=== PATIENT | female | born 1950 | race Caucasian/White ===

== ENCOUNTER 2021-02-24 13:11 | Emergency (ER) | payer OTHER ==
[~2021-02-24] VITALS: Ht 152.4 cm; Wt 85.9 kg
[2021-02-24 13:12] VITALS: BP 200/74
[2021-02-24] MEDS ORDERED: cloNIDine HCL 0.1 MG TAB PO ONE (13:30)
[2021-02-24 14:15] LABS: Basophils # (auto) 0 10 ^3/uL (0-0.2); Eosinophils # (auto) 0.1 10 ^3/uL (0-0.8); Lymphocytes # (auto) 0.7 10 ^3/uL (0.4-5.4); Monocytes # (auto) 0.4 10 ^3/uL (0-1.3); White Blood Cell 5.2 10^3/uL (4.4-10.8)
[2021-02-24 14:18] LABS: Basophils % (auto) 0.5 % (0.0-2.0); Eosinophils % (auto) 1.3 % (0.0-7.0); Hematocrit 35.4 % (36.0-46.0); Lymphocytes % (auto) 13.9 % (10.0-50.0); Mean Corpuscular Hemoglobin 33.7 pg (28.0-32.0); Mean Corpuscular Hgb Conc. 33.9 g/dL (32.0-36.0); Mean Corpuscular Volume 99.4 fL (80.0-100.0); Monocytes % (auto) 7.3 % (0.0-12.0); Nucleated Red Blood Cells % 0.1 %; Platelet Count (auto) 268 10^3/uL (140-450); Red Blood Cells 3.56 10^6/uL (4.0-5.20); Red Cell Distribution Width 14.5 % (11.8-14.3)
[2021-02-24 14:42] LABS: Alanine Aminotransferase 23 U/L (13-56); Albumin 3.5 g/dL (3.4-5.0); Anion Gap 8 (5-15); Aspartate Aminotransferase 21 U/L (15-37); BUN/Creatinine Ratio 5.4; Blood Urea Nitrogen 16 mg/dL (7-18); Calcium 8.3 mg/dL (8.5-10.1); Carbon Dioxide 26 mmol/L (21-32); Chloride 104 mmol/L (98-107); GFR African American 20 mL/min; GFR Non-African American 16 mL/min; Glucose 114 mg/dL (74-106); Magnesium 2.1 mg/dL (1.6-2.6); Potassium 3.3 mmol/L (3.5-5.1); Sodium 138 mmol/L (136-145)
[2021-02-24 14:48] LABS: Alkaline Phosphatase 82 U/L (45-117); Bilirubin, Total 0.5 mg/dL (0.2-1.0); Total Protein 7.8 g/dL (6.4-8.2)
== END 2021-02-24 19:10 | disposition left against medical advice (07) ==
LOC: ER 13:11
DX: I10 Essential (primary) hypertension (principal); Z53.21 Procedure and treatment not carried out due to patient leaving prior to being seen by health care provider
CPT/HCPCS: 36415; 80053; 83735; 84484; 85025; 93005

== ENCOUNTER → 2021-07-10 | Outpatient (CLI) | payer OTHER ==
[2021-07-10 13:47] LABS: Basophils # (auto) 0 10 ^3/uL (0-0.2); Eosinophils # (auto) 0.2 10 ^3/uL (0-0.8); Lymphocytes # (auto) 0.8 10 ^3/uL (0.4-5.4); Monocytes # (auto) 0.5 10 ^3/uL (0-1.3); Neutrophils % (auto) 75.9 % (37.0-80.0)
[2021-07-10 13:49] LABS: Basophils % (auto) 0.5 % (0.0-2.0); Eosinophils % (auto) 3.1 % (0.0-7.0); Hematocrit 33.7 % (36.0-46.0); Hemoglobin 11.4 g/dL (12.2-16.2); Lymphocytes % (auto) 12.8 % (10.0-50.0); Mean Corpuscular Hemoglobin 34.4 pg (28.0-32.0); Mean Corpuscular Hgb Conc. 33.9 g/dL (32.0-36.0); Mean Corpuscular Volume 101.5 fL (80.0-100.0); Monocytes % (auto) 7.7 % (0.0-12.0); Neutrophils # (auto) 4.7 10 ^3/uL (1.6-8.6); Red Blood Cells 3.32 10^6/uL (4.0-5.20); Red Cell Distribution Width 13.6 % (11.8-14.3); White Blood Cell 6.2 10^3/uL (4.4-10.8)
[2021-07-10 14:09] LABS: Albumin 3.6 g/dL (3.4-5.0); Calcium 8.3 mg/dL (8.5-10.1); Potassium 3.8 mmol/L (3.5-5.1)
[2021-07-10 14:13] LABS: BUN/Creatinine Ratio 5.7; Bilirubin, Total 0.5 mg/dL (0.2-1.0)
== END | disposition home or self-care (01) ==
LOC: LAB 13:30
PROVIDERS: ATTEND Internal Medicine Nephrology
DX: E11.21 Type 2 diabetes mellitus with diabetic nephropathy (principal); I12.0 Hypertensive chronic kidney disease with stage 5 chronic kidney disease or end stage renal disease; N18.9 Chronic kidney disease, unspecified
CPT/HCPCS: 36415; 80053; 80061; 83036; 85025

== ENCOUNTER 2022-01-11 09:35 | Day surgery (SDC) | payer OTHER ==
[~2022-01-11] VITALS: Ht 152.4 cm; Wt 71.2 kg
[~2022-01-11 09:35] MED LIST: CARV6.2551 PO; FURO80TA3 PO; INSLISPI SC; NIFE1TAB31 PO; SUCR5CHW PO
[2022-01-11] MEDS ORDERED: MIDAZOLAM HCL 2MG/2ML 2ml VIAL (1mg/ml) ONE (12:14)
[2022-01-11] MEDS ORDERED: fentaNYL CITRATE 100 MCG/2 ML VL ONE (12:14)
[2022-01-11] MEDS ORDERED: IOHEXOL 350 MG/ML 100ML IJ ONE (12:24)
[2022-01-11] MEDS ORDERED: LIDOCAINE 2%HCL (LOCAL ANESTH.) INJ 10ml MDV ONE (12:25)
[2022-01-11] MEDS ORDERED: HEPARIN SODIUM (PORCINE) 5000 UNITS/ML 1ML VIAL ONE (12:27)
== END 2022-01-11 14:15 | disposition home or self-care (01) ==
LOC: CATH 09:35
PROVIDERS: ATTEND Internal Medicine Nephrology
DX: T82.41XA Breakdown (mechanical) of vascular dialysis catheter, initial encounter (principal); N18.6 End stage renal disease; Z20.822 Contact with and (suspected) exposure to COVID-19; Z87.891 Personal history of nicotine dependence; Y83.8 Other surgical procedures as the cause of abnormal reaction of the patient, or of later complication, without mention of misadventure at the time of the procedure
CPT/HCPCS: 36415; 36581; 82962; C1769; J1644; J2001; J2250; J3010; Q9967; U0003; 99152

== ENCOUNTER 2022-01-29 09:40 | Inpatient (IN) | payer OTHER ==
[~2022-01-29] VITALS: Ht 154.9 cm; Wt 69.6 kg
[2022-01-29] MEDS ORDERED: SODIUM CHLORIDE 0.9% 1,000 ML IV ONE (10:45)
[2022-01-29] MEDS ORDERED: cefTRIAXone 1GM/50ML D5W 50 ML IV ONE (10:45)
[2022-01-29 11:06] LABS: Basophils # (auto) 0.1 10 ^3/uL (0-0.2); Basophils % (auto) 0.5 % (0.0-2.0); Eosinophils # (auto) 0.2 10 ^3/uL (0-0.8); Eosinophils % (auto) 0.9 % (0.0-7.0); Hematocrit 26.5 % (36.0-46.0); Hemoglobin 8.5 g/dL (12.2-16.2); Lymphocytes # (auto) 0.9 10 ^3/uL (0.4-5.4); Lymphocytes % (auto) 5.2 % (10.0-50.0); Mean Corpuscular Hemoglobin 30.2 pg (28.0-32.0); Mean Corpuscular Hgb Conc. 32.3 g/dL (32.0-36.0); Mean Corpuscular Volume 93.6 fL (80.0-100.0); Monocytes # (auto) 1.2 10 ^3/uL (0-1.3); Monocytes % (auto) 6.9 % (0.0-12.0); Neutrophils # (auto) 15.4 10 ^3/uL (1.6-8.6); Neutrophils % (auto) 86.5 % (37.0-80.0); Nucleated Red Blood Cells % 0.1 %; Red Blood Cells 2.83 10^6/uL (4.0-5.20); Red Cell Distribution Width 14.9 % (11.8-14.3); White Blood Cell 17.8 10^3/uL (4.4-10.8)
[2022-01-29 11:25] LABS: Albumin 2.1 g/dL (3.4-5.0); Calcium 9.3 mg/dL (8.5-10.1); Potassium 5.2 mmol/L (3.5-5.1)
[2022-01-29 11:29] LABS: BUN/Creatinine Ratio 11.5; Bilirubin, Total 0.5 mg/dL (0.2-1.0); Total Protein 7.2 g/dL (6.4-8.2)
[2022-01-29 13:00] LABS: Urine Specific Gravity 1.008 (1.001-1.035)
[2022-01-29 13:01] LABS: Urine Blood Trace /uL (Negative)
[2022-01-29 13:03] LABS: Urine WBC 0-5 /hpf (0 - 5)
[2022-01-29 13:04] LABS: Urine Bacteria FEW /hpf (None Seen)
[2022-01-29] MEDS ORDERED: MORPHINE SULFATE INJ 2 MG/ml SYRG IV PRN (14:45)
[2022-01-29] MEDS ORDERED: NITROGLYCERIN 0.4 MG SL TAB SL PRN (14:45)
[2022-01-29] MEDS ORDERED: DEXTROSE (50%) 50ML SYRG IV PRN (14:45)
[2022-01-29] MEDS ORDERED: SODIUM CHL 0.9% 1000 ML BAG XX ONE (16:00)
[2022-01-29] MEDS ORDERED: ALBUMIN 25% 100 ML IV PRN ×2 (16:15→16:45)
[2022-01-29 17:00] VITALS: BP 121/60
[2022-01-29] MEDS: ACCU-CHEK COMFORT CURVE STRIP VI SCH ×2 (17:02→22:00)
[2022-01-29] MEDS: InsuLIN REG 1unit/0.01ml Soln (100units/ml) SC SCH ×2 (17:03→22:00)
[2022-01-29] MEDS ORDERED: DOBUTamine 1000MCG/ML 250 ML IV SCH (17:30)
[2022-01-29 19:45] VITALS: BP 114/73
[2022-01-29] MEDS ORDERED: HYDROcodone-ACET 5/325MG TAB PO PRN (20:00)
[2022-01-29] MEDS ORDERED: METOPROLOL TARTRATE 1MG/1ML-5ML VIAL IV PRN (20:00)
[2022-01-29] MEDS ORDERED: VANCOMYCIN PER PHARMACY 0 MG IV SCH (20:00)
[2022-01-29] MEDS ORDERED: FAMOTIDINE (10MG/ML) 2ML VL IV ONE (20:00)
[2022-01-29] MEDS ORDERED: hydrOXYzine HCL 25 MG/ML VL IM PRN (20:00)
[2022-01-29] MEDS ORDERED: ONDANSETRON HCL 4 MG/2 ML VIAL IV PRN (20:00)
[2022-01-29] MEDS ORDERED: METOPROLOL SUCCINATE XL 50 MG TAB PO ONE (20:00)
[2022-01-29] MEDS ORDERED: DOCUSATE SOD 100 MG CAP PO PRN (20:00)
[2022-01-29] MEDS ORDERED: VANCOMYCIN 1GM/250ML 250 ML IV ONE (20:15)
[2022-01-29] MEDS ORDERED: hydrALAZINE HCL 20 MG/ML VL IV PRN (20:15)
[2022-01-29 20:27] VITALS: BP 103/57
[2022-01-29] MEDS ORDERED: EPOETIN ALFA-EPBX 10,000 UNIT/1ML VIAL SC ONE (21:00)
[2022-01-29 21:30] VITALS: BP 118/60
[2022-01-29 22:00] VITALS: BP 113/62
[2022-01-29] MEDS: PIPERACILLIN-TAZOB 2.25GM 50 ML IV SCH (22:54)
[2022-01-29] MEDS: HEPARIN SODIUM (PORCINE) 5000 UNITS/ML 1ML VIAL SC SCH (22:54)
[2022-01-29 23:08] LABS: INR 1.08 (0.9-1.15); Partial Thromboplastin Time 24.5 sec (23.6-33.0)
[2022-01-30] VITALS (13 sets, daily range): BP systolic 113–156; BP diastolic 58–82
[2022-01-30] MEDS ORDERED: hydrOXYzine 25 MG TAB or CAP PO PRN (00:15)
[2022-01-30 05:30] LABS: Basophils # (auto) 0 10 ^3/uL (0-0.2); Basophils % (auto) 0.2 % (0.0-2.0); Eosinophils # (auto) 0.1 10 ^3/uL (0-0.8); Lymphocytes # (auto) 0.8 10 ^3/uL (0.4-5.4); Monocytes # (auto) 0.6 10 ^3/uL (0-1.3); White Blood Cell 14.7 10^3/uL (4.4-10.8)
[2022-01-30 05:32] LABS: Eosinophils % (auto) 0.4 % (0.0-7.0); Hematocrit 22.3 % (36.0-46.0); Hemoglobin 7.6 g/dL (12.2-16.2); Lymphocytes % (auto) 5.6 % (10.0-50.0); Mean Corpuscular Hemoglobin 31.8 pg (28.0-32.0); Mean Corpuscular Hgb Conc. 34.3 g/dL (32.0-36.0); Mean Corpuscular Volume 92.6 fL (80.0-100.0); Monocytes % (auto) 4.3 % (0.0-12.0); Neutrophils # (auto) 13.1 10 ^3/uL (1.6-8.6); Neutrophils % (auto) 89.5 % (37.0-80.0); Red Blood Cells 2.41 10^6/uL (4.0-5.20); Red Cell Distribution Width 14.6 % (11.8-14.3)
[2022-01-30 05:41] LABS: Magnesium 1.9 mg/dL (1.6-2.6); Potassium 3.9 mmol/L (3.5-5.1)
[2022-01-30 05:49] LABS: INR 1.1 (0.9-1.15); Partial Thromboplastin Time 25.1 sec (23.6-33.0)
[2022-01-30 05:55] LABS: Albumin 2.9 g/dL (3.4-5.0); BUN/Creatinine Ratio 10.4; Bilirubin, Total 0.9 mg/dL (0.2-1.0); CRP High Sensitivity 11.4 mg/dL (< 0.3); Calcium 9.3 mg/dL (8.5-10.1); Phosphorus 4.9 mg/dL (2.5-4.90); Uric Acid 7.2 mg/dL (2.6-6.0)
[2022-01-30 05:57] LABS: Amphetamine Screen, Urine NEGATIVE (NEGATIVE); Barbiturate Scree,Urine NEGATIVE (NEGATIVE); Benzodiazephine Screen, Urine NEGATIVE (NEGATIVE); Cannabinoid Screen, Urine NEGATIVE (NEGATIVE); Urine Bacteria NONE SEEN /hpf (None Seen); Urine Blood 1+ /uL (Negative); Urine Mucus FEW (None Seen); Urine Specific Gravity 1.018 (1.001-1.035); Urine WBC 72 /hpf (0 - 5); Urine WBC Clumps PRESENT /hpf (None Seen)
[2022-01-30] MEDS: FUROSEMIDE 40 MG/4 ML VIAL IV SCH ×2 (06:00→06:23)
[2022-01-30 06:06] LABS: Cocaine Screen, Urine NEGATIVE (NEGATIVE); Opiate Scree,Urine NEGATIVE (NEGATIVE); Phencyclidine Screen, Urine NEGATIVE (NEGATIVE); Protein, Urine 906.7 mg/dL (0.0-11.9)
[2022-01-30] MEDS: PIPERACILLIN-TAZOB 2.25GM 50 ML IV SCH ×3 (06:21→21:49)
[2022-01-30] MEDS: ACCU-CHEK COMFORT CURVE STRIP VI SCH ×4 (06:23→21:50)
[2022-01-30] MEDS: InsuLIN REG 1unit/0.01ml Soln (100units/ml) SC SCH ×4 (06:46→21:56)
[2022-01-30] MEDS: FERROUS SULFATE 325mg EC TAB PO SCH ×3 (08:00→17:15)
[2022-01-30] MEDS: SEVELAMER 800 MG TAB PO SCH ×3 (08:00→17:15)
[2022-01-30] MEDS: METOPROLOL SUCCINATE XL 50 MG TAB PO SCH ×2 (09:30→10:00)
[2022-01-30] MEDS: CALCITRIOL 0.25 MCG CAP PO SCH (09:31)
[2022-01-30] MEDS ORDERED: METOPROLOL SUCCINATE XL 50 MG TAB PO SCH (10:00)
[2022-01-30] MEDS ORDERED: ENOXAPARIN SOD 40 MG/0.4 ML SYRINGE SC SCH (10:00)
[2022-01-30] MEDS ORDERED: FAMOTIDINE (10MG/ML) 2ML VL IV SCH (10:00)
[2022-01-30] MEDS ORDERED: SODIUM CHL 0.9% 1000 ML BAG XX ONE (12:00)
[2022-01-30] MEDS ORDERED: DIGOXIN (250MCG/ML) 2 ML AMPULE IV ONE ×2 (13:00→17:15)
[2022-01-30] MEDS: HEPARIN SODIUM (PORCINE) 5000 UNITS/ML 1ML VIAL SC SCH (14:00)
[2022-01-30] MEDS ORDERED: HEPARIN DRIP/D5W 100UNITS/ML 250 ML IV SCH ×2 (15:30→16:45)
[2022-01-30 16:57] LABS: Basophils # (auto) 0 10 ^3/uL (0-0.2); Basophils % (auto) 0.3 % (0.0-2.0); Eosinophils # (auto) 0 10 ^3/uL (0-0.8); Eosinophils % (auto) 0.1 % (0.0-7.0); Hematocrit 26.1 % (36.0-46.0); Hemoglobin 8.6 g/dL (12.2-16.2); Lymphocytes # (auto) 0.9 10 ^3/uL (0.4-5.4); Lymphocytes % (auto) 5.5 % (10.0-50.0); Mean Corpuscular Hemoglobin 30.9 pg (28.0-32.0); Mean Corpuscular Hgb Conc. 33.1 g/dL (32.0-36.0); Mean Corpuscular Volume 93.5 fL (80.0-100.0); Monocytes # (auto) 0.9 10 ^3/uL (0-1.3); Monocytes % (auto) 5.6 % (0.0-12.0); Neutrophils # (auto) 14.2 10 ^3/uL (1.6-8.6); Neutrophils % (auto) 88.5 % (37.0-80.0); Nucleated Red Blood Cells % 0.1 %; Red Cell Distribution Width 14.2 % (11.8-14.3); White Blood Cell 16.1 10^3/uL (4.4-10.8)
[2022-01-30 17:18] LABS: INR 1.17 (0.9-1.15); Partial Thromboplastin Time 25.5 sec (23.6-33.0)
[2022-01-30 20:58] LABS: Folate (Folic Acid) 5.19 ng/mL (5.38-24)
[2022-01-30] MEDS ORDERED: EPOETIN ALFA-EPBX 10,000 UNIT/1ML VIAL SC ONE (21:00)
[2022-01-30] MEDS ORDERED: dilTIAZem 25 MG/5 ML VIAL IV PRN (22:00)
[2022-01-31] VITALS (38 sets, daily range): BP systolic 91–175; BP diastolic 27–106
[2022-01-31 02:23] LABS: Basophils # (auto) 0 10 ^3/uL (0-0.2); Basophils % (auto) 0.2 % (0.0-2.0); Eosinophils # (auto) 0.1 10 ^3/uL (0-0.8); Eosinophils % (auto) 0.4 % (0.0-7.0); Hematocrit 22.9 % (36.0-46.0); Mean Corpuscular Volume 94.1 fL (80.0-100.0); Neutrophils # (auto) 12.3 10 ^3/uL (1.6-8.6); Nucleated Red Blood Cells % 0.1 %; Red Blood Cells 2.43 10^6/uL (4.0-5.20)
[2022-01-31 02:25] LABS: Hemoglobin 7.5 g/dL (12.2-16.2); Lymphocytes % (auto) 7.1 % (10.0-50.0); Mean Corpuscular Hgb Conc. 32.9 g/dL (32.0-36.0); Monocytes # (auto) 0.9 10 ^3/uL (0-1.3); Neutrophils % (auto) 86.3 % (37.0-80.0); Red Cell Distribution Width 14.5 % (11.8-14.3); White Blood Cell 14.3 10^3/uL (4.4-10.8)
[2022-01-31 02:41] LABS: INR 1.16 (0.9-1.15); Partial Thromboplastin Time 34.8 sec (23.6-33.0)
[2022-01-31 02:45] LABS: BUN/Creatinine Ratio 8.4; Potassium 3.9 mmol/L (3.5-5.1)
[2022-01-31] MEDS ORDERED: HEPARIN SODIUM (PORCINE) 5000 UNITS/ML 1ML VIAL ONE (02:48)
[2022-01-31] MEDS: PIPERACILLIN-TAZOB 2.25GM 50 ML IV SCH ×2 (05:14→14:51)
[2022-01-31] MEDS: ACCU-CHEK COMFORT CURVE STRIP VI SCH ×4 (06:16→21:49)
[2022-01-31] MEDS: InsuLIN REG 1unit/0.01ml Soln (100units/ml) SC SCH ×4 (06:30→21:54)
[2022-01-31] MEDS: FERROUS SULFATE 325mg EC TAB PO SCH ×3 (08:00→18:00)
[2022-01-31] MEDS: SEVELAMER 800 MG TAB PO SCH ×3 (08:00→18:00)
[2022-01-31] MEDS ORDERED: METOPROLOL TARTRATE 1MG/1ML-5ML VIAL IV ONE (08:45)
[2022-01-31] MEDS: METOPROLOL SUCCINATE XL 50 MG TAB PO SCH (09:22)
[2022-01-31] MEDS: CALCITRIOL 0.25 MCG CAP PO SCH (09:22)
[2022-01-31 09:34] LABS: INR 1.19 (0.9-1.15); Partial Thromboplastin Time 58.2 sec (23.6-33.0)
[2022-01-31] MEDS: FOLIC ACID 1 MG in D5W 5% 50 ML INJ SCH (10:00)
[2022-01-31] MEDS ORDERED: VANCOMYCIN 1GM/250ML 250 ML IV ONE (10:00)
[2022-01-31 13:07] LABS: Hepatitis A Ab IgM Negative; Hepatitis C Antibody Negative (Negative)
[2022-01-31 15:40] LABS: INR 1.16 (0.9-1.15); Partial Thromboplastin Time 40.2 sec (23.6-33.0)
[2022-01-31 16:11] LABS: Hepatitis B Core IgM Negative
[2022-01-31] MEDS: HEPARIN DRIP/D5W 100UNITS/ML 250 ML IV SCH (16:45)
[2022-01-31] MEDS ORDERED: IOHEXOL 300 MG/ML 100ML BOTTLE IJ ONE (17:24)
[2022-01-31] MEDS: ENALAPRILAT 1.25 MG/ML-1ML VIAL IV PRN (18:40)
[2022-01-31 22:02] LABS: INR 1.13 (0.9-1.15); Partial Thromboplastin Time 38.7 sec (23.6-33.0)
[2022-02-01] VITALS (36 sets, daily range): BP systolic 102–187; BP diastolic 20–111
[2022-02-01] MEDS: ENALAPRILAT 1.25 MG/ML-1ML VIAL IV PRN (01:14)
[2022-02-01 04:17] LABS: INR 1.16 (0.9-1.15); Partial Thromboplastin Time 39.4 sec (23.6-33.0)
[2022-02-01] MEDS: ACCU-CHEK COMFORT CURVE STRIP VI SCH ×4 (05:59→21:58)
[2022-02-01] MEDS: InsuLIN REG 1unit/0.01ml Soln (100units/ml) SC SCH ×4 (06:11→22:08)
[2022-02-01 06:24] LABS: Hemoglobin 7.6 g/dL (12.2-16.2); White Blood Cell 17.4 10^3/uL (4.4-10.8)
[2022-02-01 06:26] LABS: Hematocrit 22.4 % (36.0-46.0); Mean Corpuscular Hemoglobin 31.8 pg (28.0-32.0); Mean Corpuscular Hgb Conc. 33.8 g/dL (32.0-36.0); Mean Corpuscular Volume 93.9 fL (80.0-100.0); Red Blood Cells 2.38 10^6/uL (4.0-5.20); Red Cell Distribution Width 14.6 % (11.8-14.3)
[2022-02-01 06:41] LABS: Albumin 2.5 g/dL (3.4-5.0); Calcium 8.7 mg/dL (8.5-10.1); Potassium 3.3 mmol/L (3.5-5.1)
[2022-02-01 06:44] LABS: Basophils % (manual) 0 (0.0-2.0); Blast Cells 0; Eosinophils % (manual) 0 (0-7); Metamyelocytes % 0; Myelocytes % 0; Promyelocytes % 0; Reactive Lymphocytes 0
[2022-02-01 06:51] LABS: BUN/Creatinine Ratio 9.7; Bilirubin, Total 0.6 mg/dL (0.2-1.0); CRP High Sensitivity 15.9 mg/dL (< 0.3); Total Protein 6.5 g/dL (6.4-8.2)
[2022-02-01] MEDS ORDERED: SODIUM CHL 0.9% 1000 ML BAG XX ONE (07:00)
[2022-02-01 07:46] LABS: Band Neutrophils % (manual) 5; Lymphocytes % (manual) 6 (10.0-50.0); Monocytes % (manual) 1 (0-12)
[2022-02-01] MEDS: FERROUS SULFATE 325mg EC TAB PO SCH ×3 (08:00→18:00)
[2022-02-01] MEDS: SEVELAMER 800 MG TAB PO SCH ×3 (08:00→18:00)
[2022-02-01] MEDS: cefTRIAXone 1GM/50ML D5W 50 ML IV SCH (09:02)
[2022-02-01 09:36] LABS: INR 1.19 (0.9-1.15); Partial Thromboplastin Time 48.4 sec (23.6-33.0)
[2022-02-01] MEDS: FOLIC ACID 1 MG in D5W 5% 50 ML INJ SCH (10:00)
[2022-02-01] MEDS: CALCITRIOL 0.25 MCG CAP PO SCH (10:00)
[2022-02-01] MEDS: METOPROLOL SUCCINATE XL 50 MG TAB PO SCH (10:00)
[2022-02-01] MEDS ORDERED: IOHEXOL 300 MG/ML 100ML BOTTLE IJ ONE (10:44)
[2022-02-01] MEDS: HEPARIN DRIP/D5W 100UNITS/ML 250 ML IV SCH ×2 (10:48→18:00)
[2022-02-01] MEDS ORDERED: LIDOCAINE 2%HCL (LOCAL ANESTH.) INJ 10ml MDV ONE (16:13)
[2022-02-01 17:26] LABS: INR 1.14 (0.9-1.15); Partial Thromboplastin Time 23.5 sec (23.6-33.0)
[2022-02-01] MEDS ORDERED: VANCOMYCIN 500 MG in D5W 5% 100 ML IV ONE (18:00)
[2022-02-01] MEDS ORDERED: VANCOMYCIN 1GM/250ML 250 ML IV ONE (18:53)
[2022-02-01] MEDS ORDERED: EPOETIN ALFA-EPBX 10,000 UNIT/1ML VIAL SC ONE (21:00)
[2022-02-02] VITALS (39 sets, daily range): BP systolic 137–179; BP diastolic 46–93
[2022-02-02 01:05] LABS: INR 1.26 (0.9-1.15); Partial Thromboplastin Time 59.8 sec (23.6-33.0)
[2022-02-02] MEDS: HEPARIN DRIP/D5W 100UNITS/ML 250 ML IV SCH (06:03)
[2022-02-02] MEDS: ACCU-CHEK COMFORT CURVE STRIP VI SCH ×2 (06:41→11:30)
[2022-02-02] MEDS: InsuLIN REG 1unit/0.01ml Soln (100units/ml) SC SCH ×2 (06:52→11:30)
[2022-02-02 06:58] LABS: Eosinophils # (auto) 0.1 10 ^3/uL (0-0.8); Red Cell Distribution Width 14.5 % (11.8-14.3)
[2022-02-02 07:01] LABS: Basophils # (auto) 0 10 ^3/uL (0-0.2); Basophils % (auto) 0.3 % (0.0-2.0); Eosinophils % (auto) 0.5 % (0.0-7.0); Hematocrit 20.9 % (36.0-46.0); Hemoglobin 7.3 g/dL (12.2-16.2); Lymphocytes # (auto) 1.1 10 ^3/uL (0.4-5.4); Lymphocytes % (auto) 6.4 % (10.0-50.0); Mean Corpuscular Hgb Conc. 35.1 g/dL (32.0-36.0); Mean Corpuscular Volume 94.1 fL (80.0-100.0); Monocytes # (auto) 0.8 10 ^3/uL (0-1.3); Monocytes % (auto) 4.7 % (0.0-12.0); Neutrophils # (auto) 14.6 10 ^3/uL (1.6-8.6); Neutrophils % (auto) 88.1 % (37.0-80.0); Nucleated Red Blood Cells % 0.4 %; Red Blood Cells 2.22 10^6/uL (4.0-5.20); White Blood Cell 16.6 10^3/uL (4.4-10.8)
[2022-02-02 07:16] LABS: Calcium 8.8 mg/dL (8.5-10.1); Potassium 3.5 mmol/L (3.5-5.1)
[2022-02-02 07:17] LABS: BUN/Creatinine Ratio 6.8
[2022-02-02 07:21] LABS: INR 1.25 (0.9-1.15); Partial Thromboplastin Time 66.3 sec (23.6-33.0)
[2022-02-02] MEDS: FERROUS SULFATE 325mg EC TAB PO SCH ×2 (07:46→12:00)
[2022-02-02] MEDS: SEVELAMER 800 MG TAB PO SCH ×3 (07:46→17:47)
[2022-02-02] MEDS: cefTRIAXone 1GM/50ML D5W 50 ML IV SCH (09:00)
[2022-02-02] MEDS: FOLIC ACID 1 MG in D5W 5% 50 ML INJ SCH (10:00)
[2022-02-02] MEDS: CALCITRIOL 0.25 MCG CAP PO SCH (10:00)
[2022-02-02] MEDS: METOPROLOL SUCCINATE XL 50 MG TAB PO SCH (10:00)
[2022-02-02] MEDS ORDERED: METOPROLOL TARTRATE 25 MG TAB PO ONE (14:00)
[2022-02-02] MEDS: METOPROLOL TARTRATE 25 MG TAB PO SCH (22:01)
[2022-02-03] VITALS (16 sets, daily range): BP systolic 116–164; BP diastolic 39–64
[2022-02-03] MEDS: Nepro With Carb Steady 1 Liter Bottle GT SCH (03:10)
[2022-02-03] MEDS: SEVELAMER 800 MG TAB PO SCH ×2 (08:00→11:24)
[2022-02-03] MEDS: cefTRIAXone 1GM/50ML D5W 50 ML IV SCH (09:31)
[2022-02-03] MEDS: METOPROLOL TARTRATE 25 MG TAB PO SCH ×2 (09:32→22:28)
[2022-02-03 10:23] LABS: Basophils # (auto) 0.1 10 ^3/uL (0-0.2); Basophils % (auto) 0.3 % (0.0-2.0); Hemoglobin 7.3 g/dL (12.2-16.2); Monocytes # (auto) 1.1 10 ^3/uL (0-1.3); Red Blood Cells 2.38 10^6/uL (4.0-5.20)
[2022-02-03 10:24] LABS: Eosinophils # (auto) 0.1 10 ^3/uL (0-0.8); Eosinophils % (auto) 0.3 % (0.0-7.0); Lymphocytes # (auto) 0.8 10 ^3/uL (0.4-5.4); Lymphocytes % (auto) 4.1 % (10.0-50.0); Mean Corpuscular Hemoglobin 30.8 pg (28.0-32.0); Mean Corpuscular Hgb Conc. 31.9 g/dL (32.0-36.0); Mean Corpuscular Volume 96.6 fL (80.0-100.0); Monocytes % (auto) 5.4 % (0.0-12.0); Neutrophils # (auto) 18.4 10 ^3/uL (1.6-8.6); Neutrophils % (auto) 89.9 % (37.0-80.0); Nucleated Red Blood Cells % 0.1 %; Red Cell Distribution Width 15.1 % (11.8-14.3); White Blood Cell 20.5 10^3/uL (4.4-10.8)
[2022-02-03 10:29] LABS: Albumin 2.3 g/dL (3.4-5.0); Calcium 8.9 mg/dL (8.5-10.1); Potassium 3.2 mmol/L (3.5-5.1)
[2022-02-03 10:34] LABS: BUN/Creatinine Ratio 8.1; Bilirubin, Total 0.6 mg/dL (0.2-1.0); Total Protein 7.1 g/dL (6.4-8.2)
[2022-02-03] MEDS ORDERED: PANTOPRAZOLE 40 MG/10 ML VIAL INJ IV ONE (11:00)
[2022-02-03] MEDS ORDERED: ENOXAPARIN SOD 30 MG/0.3 ML SYRINGE SC ONE (11:15)
[2022-02-03] MEDS: FOLIC ACID 1 MG in D5W 5% 50 ML INJ SCH (11:17)
[2022-02-03] MEDS: PIPERACILLIN-TAZOB 2.25GM 50 ML IV SCH ×2 (12:10→21:00)
[2022-02-04] VITALS (18 sets, daily range): BP systolic 119–175; BP diastolic 35–62
[2022-02-04] MEDS: PIPERACILLIN-TAZOB 2.25GM 50 ML IV SCH ×3 (04:00→21:49)
[2022-02-04 05:24] LABS: Basophils # (auto) 0.1 10 ^3/uL (0-0.2); Basophils % (auto) 0.3 % (0.0-2.0); Lymphocytes # (auto) 0.8 10 ^3/uL (0.4-5.4); Red Cell Distribution Width 15.3 % (11.8-14.3)
[2022-02-04 05:26] LABS: Eosinophils # (auto) 0.1 10 ^3/uL (0-0.8); Eosinophils % (auto) 0.7 % (0.0-7.0); Mean Corpuscular Hemoglobin 31.4 pg (28.0-32.0); Mean Corpuscular Volume 95.1 fL (80.0-100.0); Monocytes # (auto) 0.9 10 ^3/uL (0-1.3); Monocytes % (auto) 4.6 % (0.0-12.0); Neutrophils # (auto) 17.2 10 ^3/uL (1.6-8.6); Neutrophils % (auto) 90.4 % (37.0-80.0); Nucleated Red Blood Cells % 0.2 %; Red Blood Cells 2.11 10^6/uL (4.0-5.20)
[2022-02-04 06:10] LABS: Hemoglobin 6.6 g/dL (12.2-16.2)
[2022-02-04] MEDS ORDERED: ENOXAPARIN SOD 30 MG/0.3 ML SYRINGE SC SCH (10:00)
[2022-02-04] MEDS ORDERED: HEPARIN SODIUM (PORCINE) 5000 UNITS/ML 1ML VIAL SC SCH (10:00)
[2022-02-04] MEDS: PANTOPRAZOLE 40 MG/10 ML VIAL INJ IV SCH (10:04)
[2022-02-04] MEDS: METOPROLOL TARTRATE 25 MG TAB PO SCH ×2 (10:04→21:44)
[2022-02-04 10:08] LABS: Albumin 2.1 g/dL (3.4-5.0); Calcium 8.4 mg/dL (8.5-10.1); Potassium 3.3 mmol/L (3.5-5.1)
[2022-02-04 10:12] LABS: Bilirubin, Total 0.4 mg/dL (0.2-1.0); Total Protein 6.7 g/dL (6.4-8.2)
[2022-02-04] MEDS: FOLIC ACID 1 MG in D5W 5% 50 ML INJ SCH (11:12)
[2022-02-04 13:23] LABS: Hematocrit 23.1 % (36.0-46.0); Hemoglobin 7.6 g/dL (12.2-16.2)
[2022-02-04] MEDS ORDERED: EPOETIN ALFA-EPBX 10,000 UNIT/1ML VIAL SC ONE (14:15)
[2022-02-05] VITALS (45 sets, daily range): BP systolic 78–158; BP diastolic 21–106
[2022-02-05] MEDS: PIPERACILLIN-TAZOB 2.25GM 50 ML IV SCH ×2 (03:52→12:47)
[2022-02-05 05:23] LABS: Basophils # (auto) 0.1 10 ^3/uL (0-0.2); Basophils % (auto) 0.5 % (0.0-2.0); Eosinophils # (auto) 0.1 10 ^3/uL (0-0.8); Eosinophils % (auto) 0.7 % (0.0-7.0); Hematocrit 22.9 % (36.0-46.0); Hemoglobin 7.5 g/dL (12.2-16.2); Lymphocytes # (auto) 0.6 10 ^3/uL (0.4-5.4); Lymphocytes % (auto) 3.2 % (10.0-50.0); Mean Corpuscular Hemoglobin 31.5 pg (28.0-32.0); Mean Corpuscular Hgb Conc. 32.5 g/dL (32.0-36.0); Mean Corpuscular Volume 96.8 fL (80.0-100.0); Monocytes # (auto) 0.9 10 ^3/uL (0-1.3); Monocytes % (auto) 4.7 % (0.0-12.0); Neutrophils # (auto) 16.8 10 ^3/uL (1.6-8.6); Neutrophils % (auto) 90.9 % (37.0-80.0); Nucleated Red Blood Cells % 0.3 %; Red Blood Cells 2.37 10^6/uL (4.0-5.20); Red Cell Distribution Width 15.6 % (11.8-14.3); White Blood Cell 18.5 10^3/uL (4.4-10.8)
[2022-02-05 05:45] LABS: Albumin 2.1 g/dL (3.4-5.0); Calcium 8.6 mg/dL (8.5-10.1); Potassium 3.5 mmol/L (3.5-5.1)
[2022-02-05 05:49] LABS: BUN/Creatinine Ratio 8.4; Bilirubin, Total 0.5 mg/dL (0.2-1.0); Phosphorus 8.3 mg/dL (2.5-4.90)
[2022-02-05 05:51] LABS: % Iron Saturation 32.5 % (15-50)
[2022-02-05] MEDS ORDERED: DEXTROSE (50%) 50ML SYRG IV PRN (06:45)
[2022-02-05] MEDS: InsuLIN REG 1unit/0.01ml Soln (100units/ml) SC SCH ×3 (06:52→17:37)
[2022-02-05] MEDS: PANTOPRAZOLE 40 MG/10 ML VIAL INJ IV SCH (09:49)
[2022-02-05] MEDS: METOPROLOL TARTRATE 25 MG TAB PO SCH ×2 (09:50→22:00)
[2022-02-05] MEDS: FOLIC ACID 1 MG in D5W 5% 50 ML INJ SCH (09:52)
[2022-02-05] MEDS ORDERED: SODIUM CHL 0.9% 1000 ML BAG XX ONE (10:15)
[2022-02-05] MEDS ORDERED: InsuLIN REG 1unit/0.01ml Soln (100units/ml) SC SCH (12:00)
[2022-02-05] MEDS: ACCU-CHEK COMFORT CURVE STRIP VI SCH ×2 (12:43→17:38)
[2022-02-05] MEDS: CALCIUM ACETATE 667 MG CAP NG SCH ×2 (12:47→17:40)
[2022-02-05] MEDS ORDERED: NOREPINEPHRINE 8 MG/250ML KIT 250 ML IV ONE (15:37)
[2022-02-05] MEDS: NOREPINEPHRINE 8 MG/250ML KIT 250 ML IV SCH (15:48)
[2022-02-05] MEDS ORDERED: EPOETIN ALFA-EPBX 10,000 UNIT/1ML VIAL SC ONE (21:00)
[2022-02-05] MEDS: INSULIN LANTUS (GLARGINE) 1 /0.01ml (100units/ml) SC SCH (22:09)
[2022-02-06] VITALS (68 sets, daily range): BP systolic 99–214; BP diastolic 24–167
[2022-02-06] MEDS: CALCIUM ACETATE 667 MG CAP NG SCH ×5 (00:09→22:48)
[2022-02-06] MEDS: ACCU-CHEK COMFORT CURVE STRIP VI SCH ×5 (00:10→22:48)
[2022-02-06] MEDS: InsuLIN REG 1unit/0.01ml Soln (100units/ml) SC SCH ×5 (00:10→23:10)
[2022-02-06 06:47] LABS: Basophils # (auto) 0.1 10 ^3/uL (0-0.2); Basophils % (auto) 0.4 % (0.0-2.0); Eosinophils # (auto) 0.2 10 ^3/uL (0-0.8); Eosinophils % (auto) 0.8 % (0.0-7.0)
[2022-02-06 06:49] LABS: Hematocrit 21.4 % (36.0-46.0); Lymphocytes # (auto) 1.2 10 ^3/uL (0.4-5.4); Lymphocytes % (auto) 5.5 % (10.0-50.0); Mean Corpuscular Hemoglobin 31.6 pg (28.0-32.0); Mean Corpuscular Hgb Conc. 32.7 g/dL (32.0-36.0); Mean Corpuscular Volume 96.8 fL (80.0-100.0); Monocytes # (auto) 1.9 10 ^3/uL (0-1.3); Monocytes % (auto) 8.8 % (0.0-12.0); Neutrophils # (auto) 18.2 10 ^3/uL (1.6-8.6); Neutrophils % (auto) 84.5 % (37.0-80.0); Nucleated Red Blood Cells % 1.3 %; Red Blood Cells 2.21 10^6/uL (4.0-5.20); White Blood Cell 21.6 10^3/uL (4.4-10.8)
[2022-02-06 06:53] LABS: BUN/Creatinine Ratio 8.2; Calcium 9.5 mg/dL (8.5-10.1); Potassium 3.6 mmol/L (3.5-5.1)
[2022-02-06] MEDS ORDERED: SODIUM CHL 0.9% 1000 ML BAG XX ONE (07:00)
[2022-02-06] MEDS ORDERED: CATHFLO ACTIVASE (ALTEPLASE) 2 MG VIAL IV ONE (09:15)
[2022-02-06] MEDS: METOPROLOL TARTRATE 25 MG TAB PO SCH ×2 (10:00→22:47)
[2022-02-06] MEDS: INSULIN LANTUS (GLARGINE) 1 /0.01ml (100units/ml) SC SCH ×2 (13:03→23:11)
[2022-02-06] MEDS: PANTOPRAZOLE 40 MG/10 ML VIAL INJ IV SCH (13:05)
[2022-02-06 13:45] LABS: Hemoglobin 7.6 g/dL (12.2-16.2)
[2022-02-06 13:46] LABS: Hematocrit 23.8 % (36.0-46.0)
[2022-02-06] MEDS ORDERED: ALBUTEROL SULF 2.5 MG/0.5ML(0.5%) NEB SOLN NEB SCH (14:00)
[2022-02-06] MEDS ORDERED: VANCOMYCIN 500 MG in D5W 5% 100 ML IV ONE (16:00)
[2022-02-06] MEDS: FOLIC ACID 1 MG in D5W 5% 50 ML INJ SCH (16:42)
[2022-02-06] MEDS: NOREPINEPHRINE 8 MG/250ML KIT 250 ML IV SCH (16:43)
[2022-02-06] MEDS: CEFTAROLINE 200 MG in SODIUM CHL 0.9% 100 ML IV SCH ×2 (16:47→22:47)
[2022-02-06 18:28] LABS: INR 1.12 (0.9-1.15); Partial Thromboplastin Time < 20.0 sec (23.6-33.0)
[2022-02-06] MEDS ORDERED: EPOETIN ALFA-EPBX 10,000 UNIT/1ML VIAL SC ONE (21:00)
[2022-02-06] MEDS: ACETYLCYSTEINE 20%(200MG/ML) SOL 4ML NEB SCH (21:40)
[2022-02-06] MEDS: ALBUTEROL SULF 2.5 MG/0.5ML(0.5%) NEB SOLN NEB PRN (21:40)
[2022-02-06 22:18] LABS: Lactic Acid w/Reflex 2.8 mmol/L (0.4-2.0)
[2022-02-07] VITALS (22 sets, daily range): BP systolic 102–136; BP diastolic 0–62
[2022-02-07 05:24] LABS: BUN/Creatinine Ratio 8.3; Calcium 8.8 mg/dL (8.5-10.1); Potassium 4.3 mmol/L (3.5-5.1)
[2022-02-07] MEDS ORDERED: CATHFLO ACTIVASE (ALTEPLASE) 2 MG VIAL IV ONE (05:30)
[2022-02-07] MEDS ORDERED: CATHFLO ACTIVASE (ALTEPLASE) 2 MG VIAL ONE (05:43)
[2022-02-07] MEDS: CALCIUM ACETATE 667 MG CAP NG SCH ×3 (06:00→23:34)
[2022-02-07] MEDS ORDERED: STERILE WATER 10 ML ONE (06:03)
[2022-02-07] MEDS: CEFTAROLINE 200 MG in SODIUM CHL 0.9% 100 ML IV SCH ×3 (06:19→22:25)
[2022-02-07] MEDS: ACCU-CHEK COMFORT CURVE STRIP VI SCH ×3 (06:22→18:47)
[2022-02-07] MEDS: InsuLIN REG 1unit/0.01ml Soln (100units/ml) SC SCH ×4 (06:32→23:35)
[2022-02-07] MEDS: ACETYLCYSTEINE 20%(200MG/ML) SOL 4ML NEB SCH ×3 (06:32→22:47)
[2022-02-07] MEDS: ALBUTEROL SULF 2.5 MG/0.5ML(0.5%) NEB SOLN NEB PRN ×3 (06:32→22:46)
[2022-02-07 08:57] LABS: Hematocrit 21.5 % (36.0-46.0)
[2022-02-07 09:00] LABS: Hemoglobin 6.9 g/dL (12.2-16.2)
[2022-02-07] MEDS: INSULIN LANTUS (GLARGINE) 1 /0.01ml (100units/ml) SC SCH ×2 (10:00→22:25)
[2022-02-07] MEDS: METOPROLOL TARTRATE 25 MG TAB PO SCH ×2 (10:00→22:00)
[2022-02-07] MEDS: PANTOPRAZOLE 40 MG/10 ML VIAL INJ IV SCH (10:00)
[2022-02-07] MEDS: FOLIC ACID 1 MG in D5W 5% 50 ML INJ SCH (11:03)
[2022-02-07] MEDS ORDERED: ALBUTEROL SULF 2.5 MG/0.5ML(0.5%) NEB SOLN ONE (13:41)
[2022-02-07] MEDS: NOREPINEPHRINE 8 MG/250ML KIT 250 ML IV SCH (15:45)
[2022-02-07 20:19] LABS: Hematocrit 19.8 % (36.0-46.0)
[2022-02-07 20:38] LABS: Hemoglobin 6.5 g/dL (12.2-16.2)
[2022-02-07 21:25] LABS: Mean Corpuscular Hemoglobin 31.7 pg (28.0-32.0); Mean Corpuscular Hgb Conc. 32.6 g/dL (32.0-36.0); Mean Corpuscular Volume 97.2 fL (80.0-100.0); Red Blood Cells 2.05 10^6/uL (4.0-5.20); Red Cell Distribution Width 16.7 % (11.8-14.3); White Blood Cell 12.5 10^3/uL (4.4-10.8)
[2022-02-07 21:28] LABS: Basophils % (manual) 0 (0.0-2.0); Blast Cells 0; Eosinophils % (manual) 0 (0-7); Metamyelocytes % 0; Myelocytes % 0; Promyelocytes % 0; Reactive Lymphocytes 0
[2022-02-07 22:00] LABS: Band Neutrophils % (manual) 2; Lymphocytes % (manual) 5 (10.0-50.0); Monocytes % (manual) 3 (0-12)
[2022-02-07] MEDS ORDERED: ACETAMINOPHEN 325 MG TAB PO ONE (23:00)
[2022-02-07] MEDS: ACETAMINOPHEN 325 MG TAB PO PRN (23:40)
[2022-02-08] VITALS (87 sets, daily range): BP systolic 77–154; BP diastolic 15–59
[2022-02-08] MEDS: ACCU-CHEK COMFORT CURVE STRIP VI SCH ×5 (00:19→23:50)
[2022-02-08] MEDS: NOREPINEPHRINE 8 MG/250ML KIT 250 ML IV SCH (01:14)
[2022-02-08] MEDS: CEFTAROLINE 200 MG in SODIUM CHL 0.9% 100 ML IV SCH ×3 (05:14→21:50)
[2022-02-08] MEDS: CALCIUM ACETATE 667 MG CAP NG SCH ×4 (05:15→23:54)
[2022-02-08] MEDS: ALBUTEROL SULF 2.5 MG/0.5ML(0.5%) NEB SOLN NEB PRN ×3 (06:00→18:50)
[2022-02-08] MEDS: ACETYLCYSTEINE 20%(200MG/ML) SOL 4ML NEB SCH ×3 (06:00→18:50)
[2022-02-08] MEDS: InsuLIN REG 1unit/0.01ml Soln (100units/ml) SC SCH ×4 (06:00→23:50)
[2022-02-08] MEDS ORDERED: SODIUM CHL 0.9% 1000 ML BAG XX ONE (07:00)
[2022-02-08] MEDS: PANTOPRAZOLE 40 MG/10 ML VIAL INJ IV SCH (09:28)
[2022-02-08] MEDS: INSULIN LANTUS (GLARGINE) 1 /0.01ml (100units/ml) SC SCH ×2 (09:28→21:51)
[2022-02-08] MEDS: METOPROLOL TARTRATE 25 MG TAB PO SCH ×2 (09:28→21:50)
[2022-02-08] MEDS: Nepro With Carb Steady 1 Liter Bottle GT SCH (11:33)
[2022-02-08] MEDS: FOLIC ACID 1 MG in D5W 5% 50 ML INJ SCH (13:55)
[2022-02-08] MEDS ORDERED: CATHFLO ACTIVASE (ALTEPLASE) 2 MG VIAL IV ONE (14:00)
[2022-02-08 14:47] LABS: Basophils # (auto) 0.3 10 ^3/uL (0-0.2); Basophils % (auto) 1.9 % (0.0-2.0); Eosinophils # (auto) 0.1 10 ^3/uL (0-0.8); Eosinophils % (auto) 0.8 % (0.0-7.0); Hematocrit 28.8 % (36.0-46.0); Hemoglobin 9.8 g/dL (12.2-16.2); Lymphocytes # (auto) 0.5 10 ^3/uL (0.4-5.4); Lymphocytes % (auto) 3.8 % (10.0-50.0); Mean Corpuscular Hemoglobin 30.3 pg (28.0-32.0); Mean Corpuscular Hgb Conc. 33.9 g/dL (32.0-36.0); Mean Corpuscular Volume 89.3 fL (80.0-100.0); Monocytes # (auto) 0.8 10 ^3/uL (0-1.3); Neutrophils # (auto) 11.6 10 ^3/uL (1.6-8.6); Neutrophils % (auto) 87.5 % (37.0-80.0); Nucleated Red Blood Cells % 1.2 %; Red Blood Cells 3.23 10^6/uL (4.0-5.20); Red Cell Distribution Width 17.8 % (11.8-14.3); White Blood Cell 13.2 10^3/uL (4.4-10.8)
[2022-02-08 15:06] LABS: BUN/Creatinine Ratio 8.4; Calcium 9.3 mg/dL (8.5-10.1); Potassium 4.2 mmol/L (3.5-5.1)
[2022-02-08] MEDS ORDERED: EPOETIN ALFA-EPBX 10,000 UNIT/1ML VIAL SC ONE (21:00)
[2022-02-08] MEDS: ACETAMINOPHEN 325 MG TAB PO PRN (23:54)
[2022-02-09] VITALS (85 sets, daily range): BP systolic 70–152; BP diastolic 27–100
[2022-02-09 05:12] LABS: Basophils # (auto) 0 10 ^3/uL (0-0.2); Basophils % (auto) 0.3 % (0.0-2.0); Eosinophils # (auto) 0.1 10 ^3/uL (0-0.8); Eosinophils % (auto) 0.9 % (0.0-7.0); Hematocrit 27.4 % (36.0-46.0); Hemoglobin 9.4 g/dL (12.2-16.2); Lymphocytes # (auto) 0.9 10 ^3/uL (0.4-5.4); Lymphocytes % (auto) 6.9 % (10.0-50.0); Mean Corpuscular Hemoglobin 30.8 pg (28.0-32.0); Mean Corpuscular Hgb Conc. 34.4 g/dL (32.0-36.0); Mean Corpuscular Volume 89.7 fL (80.0-100.0); Monocytes # (auto) 1.1 10 ^3/uL (0-1.3); Monocytes % (auto) 8.5 % (0.0-12.0); Neutrophils # (auto) 10.5 10 ^3/uL (1.6-8.6); Neutrophils % (auto) 83.4 % (37.0-80.0); Nucleated Red Blood Cells % 0.5 %; Red Blood Cells 3.05 10^6/uL (4.0-5.20); Red Cell Distribution Width 19.7 % (11.8-14.3); White Blood Cell 12.6 10^3/uL (4.4-10.8)
[2022-02-09 05:46] LABS: BUN/Creatinine Ratio 8.7; Calcium 9.4 mg/dL (8.5-10.1); Potassium 4.2 mmol/L (3.5-5.1)
[2022-02-09] MEDS: CEFTAROLINE 200 MG in SODIUM CHL 0.9% 100 ML IV SCH ×3 (05:59→22:20)
[2022-02-09] MEDS: CALCIUM ACETATE 667 MG CAP NG SCH ×3 (05:59→17:48)
[2022-02-09] MEDS: InsuLIN REG 1unit/0.01ml Soln (100units/ml) SC SCH ×3 (06:00→17:49)
[2022-02-09] MEDS: ACCU-CHEK COMFORT CURVE STRIP VI SCH ×3 (06:00→17:48)
[2022-02-09] MEDS: ALBUTEROL SULF 2.5 MG/0.5ML(0.5%) NEB SOLN NEB PRN ×2 (06:21→18:18)
[2022-02-09] MEDS: ACETYLCYSTEINE 20%(200MG/ML) SOL 4ML NEB SCH ×3 (06:22→18:18)
[2022-02-09] MEDS ORDERED: SODIUM CHL 0.9% 1000 ML BAG XX ONE (07:00)
[2022-02-09] MEDS: METOPROLOL TARTRATE 25 MG TAB PO SCH ×2 (10:00→22:00)
[2022-02-09] MEDS: PANTOPRAZOLE 40 MG/10 ML VIAL INJ IV SCH (10:17)
[2022-02-09] MEDS: FOLIC ACID 1 MG in D5W 5% 50 ML INJ SCH (10:18)
[2022-02-09] MEDS: INSULIN LANTUS (GLARGINE) 1 /0.01ml (100units/ml) SC SCH ×2 (10:22→22:27)
[2022-02-09] MEDS ORDERED: EPOETIN ALFA-EPBX 10,000 UNIT/1ML VIAL SC ONE (21:00)
[2022-02-10] VITALS (72 sets, daily range): BP systolic 69–151; BP diastolic 28–64
[2022-02-10] MEDS: ACCU-CHEK COMFORT CURVE STRIP VI SCH ×5 (00:50→23:56)
[2022-02-10] MEDS: CALCIUM ACETATE 667 MG CAP NG SCH ×5 (00:50→23:56)
[2022-02-10] MEDS: NOREPINEPHRINE 8 MG/250ML KIT 250 ML IV SCH ×2 (01:34→15:45)
[2022-02-10] MEDS: ALBUTEROL SULF 2.5 MG/0.5ML(0.5%) NEB SOLN NEB PRN ×3 (05:55→18:27)
[2022-02-10] MEDS: ACETYLCYSTEINE 20%(200MG/ML) SOL 4ML NEB SCH ×3 (05:57→18:27)
[2022-02-10] MEDS: InsuLIN REG 1unit/0.01ml Soln (100units/ml) SC SCH ×4 (06:00→18:00)
[2022-02-10] MEDS: CEFTAROLINE 200 MG in SODIUM CHL 0.9% 100 ML IV SCH ×3 (07:46→21:15)
[2022-02-10 08:26] LABS: Basophils # (auto) 0.1 10 ^3/uL (0-0.2); Basophils % (auto) 0.5 % (0.0-2.0); Eosinophils # (auto) 0.2 10 ^3/uL (0-0.8); Eosinophils % (auto) 1.2 % (0.0-7.0); Hematocrit 25.7 % (36.0-46.0); Hemoglobin 8.6 g/dL (12.2-16.2); Lymphocytes # (auto) 0.8 10 ^3/uL (0.4-5.4); Lymphocytes % (auto) 6.3 % (10.0-50.0); Mean Corpuscular Hemoglobin 30.1 pg (28.0-32.0); Mean Corpuscular Hgb Conc. 33.3 g/dL (32.0-36.0); Mean Corpuscular Volume 90.3 fL (80.0-100.0); Monocytes % (auto) 7.2 % (0.0-12.0); Neutrophils # (auto) 11.3 10 ^3/uL (1.6-8.6); Neutrophils % (auto) 84.8 % (37.0-80.0); Red Blood Cells 2.84 10^6/uL (4.0-5.20); Red Cell Distribution Width 18.9 % (11.8-14.3); White Blood Cell 13.3 10^3/uL (4.4-10.8)
[2022-02-10 08:42] LABS: Albumin 1.9 g/dL (3.4-5.0); Calcium 8.4 mg/dL (8.5-10.1); Potassium 3.9 mmol/L (3.5-5.1)
[2022-02-10] MEDS ORDERED: SODIUM CHL 0.9% 1000 ML BAG XX ONE (08:45)
[2022-02-10 08:46] LABS: BUN/Creatinine Ratio 9.8; Bilirubin, Total 0.5 mg/dL (0.2-1.0); Total Protein 6.2 g/dL (6.4-8.2)
[2022-02-10] MEDS: METOPROLOL TARTRATE 25 MG TAB PO SCH ×2 (10:00→21:20)
[2022-02-10] MEDS: FOLIC ACID 1 MG in D5W 5% 50 ML INJ SCH (10:32)
[2022-02-10] MEDS: PANTOPRAZOLE 40 MG/10 ML VIAL INJ IV SCH (10:32)
[2022-02-10] MEDS: INSULIN LANTUS (GLARGINE) 1 /0.01ml (100units/ml) SC SCH ×2 (10:38→21:20)
[2022-02-10] MEDS ORDERED: VANCOMYCIN 1GM/250ML 250 ML IV ONE (16:45)
[2022-02-10] MEDS ORDERED: EPOETIN ALFA-EPBX 10,000 UNIT/1ML VIAL SC ONE (21:00)
[2022-02-11] VITALS (85 sets, daily range): BP systolic 70–164; BP diastolic 16–128
[2022-02-11] MEDS: InsuLIN REG 1unit/0.01ml Soln (100units/ml) SC SCH ×5 (00:06→23:53)
[2022-02-11] MEDS: CEFTAROLINE 200 MG in SODIUM CHL 0.9% 100 ML IV SCH ×2 (06:11→22:17)
[2022-02-11] MEDS: ACCU-CHEK COMFORT CURVE STRIP VI SCH ×4 (06:19→23:47)
[2022-02-11] MEDS: NOREPINEPHRINE 8 MG/250ML KIT 250 ML IV SCH ×2 (06:19→22:02)
[2022-02-11] MEDS: CALCIUM ACETATE 667 MG CAP NG SCH ×4 (06:19→23:39)
[2022-02-11] MEDS: ACETYLCYSTEINE 20%(200MG/ML) SOL 4ML NEB SCH ×3 (07:00→23:06)
[2022-02-11] MEDS: ALBUTEROL SULF 2.5 MG/0.5ML(0.5%) NEB SOLN NEB PRN ×3 (07:01→23:06)
[2022-02-11 07:54] LABS: Basophils # (auto) 0.1 10 ^3/uL (0-0.2); Basophils % (auto) 0.5 % (0.0-2.0); Eosinophils # (auto) 0.2 10 ^3/uL (0-0.8); Eosinophils % (auto) 1.1 % (0.0-7.0); Hematocrit 26.7 % (36.0-46.0); Hemoglobin 8.9 g/dL (12.2-16.2); Lymphocytes # (auto) 1.2 10 ^3/uL (0.4-5.4); Lymphocytes % (auto) 7.8 % (10.0-50.0); Mean Corpuscular Hgb Conc. 33.4 g/dL (32.0-36.0); Mean Corpuscular Volume 89.9 fL (80.0-100.0); Monocytes % (auto) 6.8 % (0.0-12.0); Neutrophils # (auto) 12.4 10 ^3/uL (1.6-8.6); Neutrophils % (auto) 83.8 % (37.0-80.0); Red Blood Cells 2.97 10^6/uL (4.0-5.20); Red Cell Distribution Width 18.7 % (11.8-14.3); White Blood Cell 14.8 10^3/uL (4.4-10.8)
[2022-02-11 08:11] LABS: Potassium 3.2 mmol/L (3.5-5.1)
[2022-02-11 08:17] LABS: BUN/Creatinine Ratio 9.4; Calcium 8.9 mg/dL (8.5-10.1)
[2022-02-11] MEDS: PANTOPRAZOLE 40 MG/10 ML VIAL INJ IV SCH (09:17)
[2022-02-11] MEDS: FOLIC ACID 1 MG in D5W 5% 50 ML INJ SCH (09:22)
[2022-02-11] MEDS: INSULIN LANTUS (GLARGINE) 1 /0.01ml (100units/ml) SC SCH ×2 (09:24→22:10)
[2022-02-11] MEDS: METOPROLOL TARTRATE 25 MG TAB PO SCH ×2 (09:25→22:00)
[2022-02-11] MEDS: Nepro With Carb Steady 1 Liter Bottle GT SCH (14:50)
[2022-02-11] MEDS ORDERED: POTASSIUM CHL 20MEQ/100ML 100 ML IV ONE (15:15)
[2022-02-11] MEDS ORDERED: Nepro With Carb Steady 1 Liter Bottle GT SCH (17:00)
[2022-02-11] MEDS ORDERED: CEFTAROLINE 200 MG in SODIUM CHL 0.9% 100 ML IV SCH (18:00)
[2022-02-12] VITALS (97 sets, daily range): BP systolic 78–149; BP diastolic 30–84
[2022-02-12 04:41] LABS: Basophils # (auto) 0.1 10 ^3/uL (0-0.2); Basophils % (auto) 0.4 % (0.0-2.0); Eosinophils # (auto) 0.1 10 ^3/uL (0-0.8); Eosinophils % (auto) 0.9 % (0.0-7.0); Hemoglobin 8.3 g/dL (12.2-16.2); Lymphocytes # (auto) 0.8 10 ^3/uL (0.4-5.4); Lymphocytes % (auto) 5.7 % (10.0-50.0); Mean Corpuscular Hemoglobin 30.2 pg (28.0-32.0); Mean Corpuscular Hgb Conc. 33.3 g/dL (32.0-36.0); Mean Corpuscular Volume 90.7 fL (80.0-100.0); Monocytes # (auto) 0.8 10 ^3/uL (0-1.3); Monocytes % (auto) 5.7 % (0.0-12.0); Neutrophils # (auto) 11.7 10 ^3/uL (1.6-8.6); Neutrophils % (auto) 87.3 % (37.0-80.0); Nucleated Red Blood Cells % 0.4 %; Red Blood Cells 2.76 10^6/uL (4.0-5.20); White Blood Cell 13.4 10^3/uL (4.4-10.8)
[2022-02-12 04:51] LABS: Alanine Aminotransferase 16 U/L (13-56); Albumin 1.7 g/dL (3.4-5.0); Anion Gap 15 (5-15); Aspartate Aminotransferase 26 U/L (15-37); BUN/Creatinine Ratio 9.2; Blood Urea Nitrogen 61 mg/dL (7-18); Calcium 8.2 mg/dL (8.5-10.1); Carbon Dioxide 19 mmol/L (21-32); Chloride 108 mmol/L (98-107); GFR African American 8 mL/min; GFR Non-African American 7 mL/min; Glucose 152 mg/dL (74-106); Potassium 3.6 mmol/L (3.5-5.1); Sodium 142 mmol/L (136-145)
[2022-02-12 04:54] LABS: Alkaline Phosphatase 84 U/L (45-117); Bilirubin, Total 0.7 mg/dL (0.2-1.0)
[2022-02-12] MEDS: ALBUTEROL SULF 2.5 MG/0.5ML(0.5%) NEB SOLN NEB PRN ×3 (05:39→22:34)
[2022-02-12] MEDS: ACETYLCYSTEINE 20%(200MG/ML) SOL 4ML NEB SCH ×3 (05:40→22:34)
[2022-02-12] MEDS: CEFTAROLINE 200 MG in SODIUM CHL 0.9% 100 ML IV SCH ×2 (05:57→13:57)
[2022-02-12] MEDS: ACCU-CHEK COMFORT CURVE STRIP VI SCH ×3 (05:57→18:22)
[2022-02-12] MEDS: InsuLIN REG 1unit/0.01ml Soln (100units/ml) SC SCH ×3 (06:06→18:21)
[2022-02-12] MEDS: CALCIUM ACETATE 667 MG CAP NG SCH ×3 (06:07→18:21)
[2022-02-12] MEDS ORDERED: SODIUM CHL 0.9% 1000 ML BAG XX ONE (07:00)
[2022-02-12] MEDS ORDERED: ENOXAPARIN SOD 80 MG/0.8ML SYRINGE SC SCH ×3 (10:00→18:00)
[2022-02-12] MEDS: METOPROLOL TARTRATE 25 MG TAB PO SCH ×2 (10:00→22:00)
[2022-02-12] MEDS: INSULIN LANTUS (GLARGINE) 1 /0.01ml (100units/ml) SC SCH ×2 (12:49→22:46)
[2022-02-12] MEDS: PANTOPRAZOLE 40 MG/10 ML VIAL INJ IV SCH (12:49)
[2022-02-12] MEDS: FOLIC ACID 1 MG in D5W 5% 50 ML INJ SCH (12:57)
[2022-02-12] MEDS ORDERED: DAPTOmycin 500 MG in SODIUM CHL 0.9% 50 ML IV STA (16:24)
[2022-02-12] MEDS: DAPTOmycin 500 MG in SODIUM CHL 0.9% 50 ML IV SCH (18:50)
[2022-02-12] MEDS ORDERED: EPOETIN ALFA-EPBX 10,000 UNIT/1ML VIAL SC ONE (21:00)
[2022-02-13] VITALS (86 sets, daily range): BP systolic 86–162; BP diastolic 25–58
[2022-02-13 04:47] LABS: Basophils # (auto) 0 10 ^3/uL (0-0.2); Basophils % (auto) 0.2 % (0.0-2.0); Eosinophils # (auto) 0.2 10 ^3/uL (0-0.8); Eosinophils % (auto) 1.4 % (0.0-7.0); Hematocrit 23.7 % (36.0-46.0); Hemoglobin 7.8 g/dL (12.2-16.2); Lymphocytes # (auto) 0.8 10 ^3/uL (0.4-5.4); Lymphocytes % (auto) 5.7 % (10.0-50.0); Mean Corpuscular Hgb Conc. 32.8 g/dL (32.0-36.0); Mean Corpuscular Volume 91.6 fL (80.0-100.0); Monocytes # (auto) 0.8 10 ^3/uL (0-1.3); Monocytes % (auto) 5.6 % (0.0-12.0); Neutrophils % (auto) 87.1 % (37.0-80.0); Nucleated Red Blood Cells % 0.1 %; Red Blood Cells 2.59 10^6/uL (4.0-5.20); Red Cell Distribution Width 19.1 % (11.8-14.3); White Blood Cell 13.7 10^3/uL (4.4-10.8)
[2022-02-13] MEDS: CALCIUM ACETATE 667 MG CAP NG SCH ×4 (05:59→18:00)
[2022-02-13] MEDS: InsuLIN REG 1unit/0.01ml Soln (100units/ml) SC SCH ×4 (06:11→18:00)
[2022-02-13] MEDS: ACCU-CHEK COMFORT CURVE STRIP VI SCH ×4 (06:11→17:57)
[2022-02-13] MEDS: ACETYLCYSTEINE 20%(200MG/ML) SOL 4ML NEB SCH ×3 (07:49→19:26)
[2022-02-13] MEDS: ALBUTEROL SULF 2.5 MG/0.5ML(0.5%) NEB SOLN NEB PRN ×3 (07:50→19:26)
[2022-02-13] MEDS: PANTOPRAZOLE 40 MG/10 ML VIAL INJ IV SCH (11:04)
[2022-02-13] MEDS: FOLIC ACID 1 MG in D5W 5% 50 ML INJ SCH (11:04)
[2022-02-13] MEDS: INSULIN LANTUS (GLARGINE) 1 /0.01ml (100units/ml) SC SCH ×2 (11:05→22:01)
[2022-02-13] MEDS: NOREPINEPHRINE 8 MG/250ML KIT 250 ML IV SCH ×2 (12:00→15:45)
[2022-02-14] VITALS (88 sets, daily range): BP systolic 79–159; BP diastolic 35–63
[2022-02-14] MEDS: CALCIUM ACETATE 667 MG CAP NG SCH ×5 (00:24→23:41)
[2022-02-14] MEDS: InsuLIN REG 1unit/0.01ml Soln (100units/ml) SC SCH ×5 (00:31→23:40)
[2022-02-14 04:44] LABS: Hemoglobin 8.3 g/dL (12.2-16.2)
[2022-02-14 04:46] LABS: Hematocrit 25.4 % (36.0-46.0)
[2022-02-14 04:59] LABS: Alanine Aminotransferase 19 U/L (13-56); Albumin 1.7 g/dL (3.4-5.0); Anion Gap 14 (5-15); Aspartate Aminotransferase 39 U/L (15-37); BUN/Creatinine Ratio 12.6; Calcium 8.8 mg/dL (8.5-10.1); Carbon Dioxide 20 mmol/L (21-32); Chloride 110 mmol/L (98-107); GFR African American 8 mL/min; GFR Non-African American 7 mL/min; Glucose 176 mg/dL (74-106); Potassium 3.7 mmol/L (3.5-5.1); Sodium 144 mmol/L (136-145)
[2022-02-14 05:02] LABS: Alkaline Phosphatase 106 U/L (45-117); Bilirubin, Total 0.6 mg/dL (0.2-1.0); Total Protein 6.4 g/dL (6.4-8.2)
[2022-02-14 05:31] LABS: Blood Urea Nitrogen 82 mg/dL (7-18)
[2022-02-14] MEDS: ACCU-CHEK COMFORT CURVE STRIP VI SCH ×5 (06:01→23:41)
[2022-02-14] MEDS: ALBUTEROL SULF 2.5 MG/0.5ML(0.5%) NEB SOLN NEB PRN ×2 (06:59→21:47)
[2022-02-14] MEDS: ACETYLCYSTEINE 20%(200MG/ML) SOL 4ML NEB SCH ×3 (06:59→21:47)
[2022-02-14] MEDS ORDERED: SODIUM CHL 0.9% 1000 ML BAG XX ONE (07:00)
[2022-02-14] MEDS: NOREPINEPHRINE 8 MG/250ML KIT 250 ML IV SCH (10:48)
[2022-02-14] MEDS: INSULIN LANTUS (GLARGINE) 1 /0.01ml (100units/ml) SC SCH ×2 (11:36→21:44)
[2022-02-14] MEDS ORDERED: METOCLOPRAMIDE HCL 5MG/ml INJ 2ml VIAL IV ONE (15:15)
[2022-02-14] MEDS: PANTOPRAZOLE 40 MG/10 ML VIAL INJ IV SCH (17:00)
[2022-02-14] MEDS: DAPTOmycin 500 MG in SODIUM CHL 0.9% 50 ML IV SCH (17:00)
[2022-02-14] MEDS: FOLIC ACID 1 MG in D5W 5% 50 ML INJ SCH (17:00)
[2022-02-14] MEDS ORDERED: EPOETIN ALFA-EPBX 10,000 UNIT/1ML VIAL SC ONE (21:00)
[2022-02-15] VITALS (85 sets, daily range): BP systolic 69–136; BP diastolic 32–66
[2022-02-15] MEDS: NOREPINEPHRINE 8 MG/250ML KIT 250 ML IV SCH ×2 (04:25→23:00)
[2022-02-15 04:32] LABS: Basophils # (auto) 0.1 10 ^3/uL (0-0.2); Eosinophils # (auto) 0.1 10 ^3/uL (0-0.8); Hematocrit 25.7 % (36.0-46.0); Hemoglobin 8.3 g/dL (12.2-16.2); Lymphocytes # (auto) 1.3 10 ^3/uL (0.4-5.4); Mean Corpuscular Volume 97.2 fL (80.0-100.0); Monocytes # (auto) 1.1 10 ^3/uL (0-1.3); Red Blood Cells 2.64 10^6/uL (4.0-5.20)
[2022-02-15 04:36] LABS: Basophils % (auto) 0.5 % (0.0-2.0); Eosinophils % (auto) 0.3 % (0.0-7.0); Lymphocytes % (auto) 7.9 % (10.0-50.0); Mean Corpuscular Hemoglobin 31.4 pg (28.0-32.0); Mean Corpuscular Hgb Conc. 32.3 g/dL (32.0-36.0); Monocytes % (auto) 6.7 % (0.0-12.0); Neutrophils % (auto) 84.6 % (37.0-80.0); Nucleated Red Blood Cells % 0.5 %; White Blood Cell 16.5 10^3/uL (4.4-10.8)
[2022-02-15 04:37] LABS: Red Cell Distribution Width 21.4 % (11.8-14.3)
[2022-02-15 04:50] LABS: Calcium 8.6 mg/dL (8.5-10.1); Potassium 4.2 mmol/L (3.5-5.1)
[2022-02-15 04:56] LABS: Albumin 1.7 g/dL (3.4-5.0); BUN/Creatinine Ratio 12.9; Bilirubin, Total 0.9 mg/dL (0.2-1.0); Total Protein 6.7 g/dL (6.4-8.2)
[2022-02-15] MEDS: ACCU-CHEK COMFORT CURVE STRIP VI SCH ×4 (05:47→23:44)
[2022-02-15] MEDS: CALCIUM ACETATE 667 MG CAP NG SCH ×3 (05:47→23:43)
[2022-02-15] MEDS: InsuLIN REG 1unit/0.01ml Soln (100units/ml) SC SCH ×4 (05:48→23:44)
[2022-02-15] MEDS: ACETYLCYSTEINE 20%(200MG/ML) SOL 4ML NEB SCH ×3 (06:31→22:07)
[2022-02-15] MEDS: ALBUTEROL SULF 2.5 MG/0.5ML(0.5%) NEB SOLN NEB PRN ×3 (06:31→22:07)
[2022-02-15] MEDS: FOLIC ACID 1 MG in D5W 5% 50 ML INJ SCH (09:03)
[2022-02-15] MEDS: PANTOPRAZOLE 40 MG/10 ML VIAL INJ IV SCH (09:03)
[2022-02-15] MEDS: INSULIN LANTUS (GLARGINE) 1 /0.01ml (100units/ml) SC SCH ×2 (09:53→22:21)
[2022-02-16] VITALS (87 sets, daily range): BP systolic 79–151; BP diastolic 22–66
[2022-02-16 04:59] LABS: Potassium 3.4 mmol/L (3.5-5.1)
[2022-02-16 05:13] LABS: Albumin 1.7 g/dL (3.4-5.0); BUN/Creatinine Ratio 15.4; Bilirubin, Total 0.6 mg/dL (0.2-1.0); Calcium 8.6 mg/dL (8.5-10.1); Total Protein 6.2 g/dL (6.4-8.2)
[2022-02-16] MEDS: ALBUTEROL SULF 2.5 MG/0.5ML(0.5%) NEB SOLN NEB PRN ×3 (05:44→22:26)
[2022-02-16] MEDS: ACETYLCYSTEINE 20%(200MG/ML) SOL 4ML NEB SCH ×3 (05:44→22:26)
[2022-02-16] MEDS: CALCIUM ACETATE 667 MG CAP NG SCH ×4 (05:50→23:39)
[2022-02-16] MEDS: InsuLIN REG 1unit/0.01ml Soln (100units/ml) SC SCH ×4 (05:51→23:40)
[2022-02-16] MEDS: ACCU-CHEK COMFORT CURVE STRIP VI SCH ×4 (05:54→23:39)
[2022-02-16] MEDS: PANTOPRAZOLE 40 MG/10 ML VIAL INJ IV SCH (10:07)
[2022-02-16] MEDS: INSULIN LANTUS (GLARGINE) 1 /0.01ml (100units/ml) SC SCH ×2 (10:09→22:09)
[2022-02-16] MEDS: FOLIC ACID 1 MG in D5W 5% 50 ML INJ SCH (10:33)
[2022-02-16 11:39] LABS: Basophils # (auto) 0 10 ^3/uL (0-0.2); Basophils % (auto) 0.2 % (0.0-2.0); Eosinophils # (auto) 0.1 10 ^3/uL (0-0.8); Eosinophils % (auto) 0.4 % (0.0-7.0); Hematocrit 25.6 % (36.0-46.0); Hemoglobin 8.1 g/dL (12.2-16.2); Lymphocytes % (auto) 5.3 % (10.0-50.0); Mean Corpuscular Hemoglobin 29.7 pg (28.0-32.0); Mean Corpuscular Hgb Conc. 31.5 g/dL (32.0-36.0); Mean Corpuscular Volume 94.2 fL (80.0-100.0); Monocytes # (auto) 1.1 10 ^3/uL (0-1.3); Monocytes % (auto) 5.6 % (0.0-12.0); Neutrophils # (auto) 17.1 10 ^3/uL (1.6-8.6); Neutrophils % (auto) 88.5 % (37.0-80.0); Nucleated Red Blood Cells % 0.3 %; Red Blood Cells 2.71 10^6/uL (4.0-5.20); Red Cell Distribution Width 20.4 % (11.8-14.3); White Blood Cell 19.3 10^3/uL (4.4-10.8)
[2022-02-16] MEDS ORDERED: SODIUM CHL 0.9% 1000 ML BAG XX ONE (13:00)
[2022-02-16] MEDS: DAPTOmycin 500 MG in SODIUM CHL 0.9% 50 ML IV SCH (16:14)
[2022-02-16] MEDS: EPOETIN ALFA-EPBX 10,000 UNIT/1ML VIAL SC ONE (22:00)
[2022-02-17] VITALS (81 sets, daily range): BP systolic 83–132; BP diastolic 19–71
[2022-02-17] MEDS: EPOETIN ALFA-EPBX 10,000 UNIT/1ML VIAL SC ONE (01:09)
[2022-02-17] MEDS: NOREPINEPHRINE 8 MG/250ML KIT 250 ML IV SCH ×2 (04:05→18:49)
[2022-02-17 04:54] LABS: BUN/Creatinine Ratio 17.2; Phosphorus 3.5 mg/dL (2.5-4.90); Potassium 3.7 mmol/L (3.5-5.1)
[2022-02-17 05:14] LABS: Albumin 0.3 g/dL (3.4-5.0)
[2022-02-17] MEDS ORDERED: ALBUMIN 25% 50 ML IV ONE (05:45)
[2022-02-17] MEDS: CALCIUM ACETATE 667 MG CAP NG SCH ×3 (05:51→17:33)
[2022-02-17] MEDS: ACCU-CHEK COMFORT CURVE STRIP VI SCH ×3 (05:52→17:33)
[2022-02-17] MEDS: InsuLIN REG 1unit/0.01ml Soln (100units/ml) SC SCH ×3 (05:53→17:34)
[2022-02-17] MEDS: ACETYLCYSTEINE 20%(200MG/ML) SOL 4ML NEB SCH ×3 (07:01→21:46)
[2022-02-17] MEDS: ALBUTEROL SULF 2.5 MG/0.5ML(0.5%) NEB SOLN NEB PRN ×3 (07:02→21:46)
[2022-02-17] MEDS: PANTOPRAZOLE 40 MG/10 ML VIAL INJ IV SCH (10:10)
[2022-02-17] MEDS: FOLIC ACID 1 MG in D5W 5% 50 ML INJ SCH (10:10)
[2022-02-17 10:20] LABS: Basophils # (auto) 0.1 10 ^3/uL (0-0.2); Monocytes # (auto) 0.7 10 ^3/uL (0-1.3); White Blood Cell 16.1 10^3/uL (4.4-10.8)
[2022-02-17 10:22] LABS: Basophils % (auto) 0.4 % (0.0-2.0); Eosinophils # (auto) 0 10 ^3/uL (0-0.8); Eosinophils % (auto) 0.2 % (0.0-7.0); Hematocrit 23.3 % (36.0-46.0); Hemoglobin 7.5 g/dL (12.2-16.2); Lymphocytes # (auto) 0.6 10 ^3/uL (0.4-5.4); Lymphocytes % (auto) 3.9 % (10.0-50.0); Mean Corpuscular Hemoglobin 31.4 pg (28.0-32.0); Mean Corpuscular Hgb Conc. 32.4 g/dL (32.0-36.0); Mean Corpuscular Volume 96.8 fL (80.0-100.0); Monocytes % (auto) 4.4 % (0.0-12.0); Neutrophils # (auto) 14.7 10 ^3/uL (1.6-8.6); Neutrophils % (auto) 91.1 % (37.0-80.0); Nucleated Red Blood Cells % 1.4 %; Red Cell Distribution Width 21.1 % (11.8-14.3)
[2022-02-17] MEDS: INSULIN LANTUS (GLARGINE) 1 /0.01ml (100units/ml) SC SCH ×2 (10:33→21:48)
[2022-02-17] MEDS: ALBUMIN 25% 100 ML IV SCH ×2 (14:13→21:49)
[2022-02-18] VITALS (10 sets, daily range): BP systolic 80–127; BP diastolic 20–46
[2022-02-18] MEDS: CALCIUM ACETATE 667 MG CAP NG SCH ×2 (00:05→05:45)
[2022-02-18] MEDS: ACCU-CHEK COMFORT CURVE STRIP VI SCH ×2 (00:06→05:46)
[2022-02-18] MEDS: InsuLIN REG 1unit/0.01ml Soln (100units/ml) SC SCH ×2 (00:07→05:48)
[2022-02-18] MEDS: ALBUMIN 25% 100 ML IV SCH (04:51)
[2022-02-18] MEDS ORDERED: ALBUTEROL SULF 2.5 MG/0.5ML(0.5%) NEB SOLN ONE (06:23)
== END 2022-02-18 10:00 ==
LOC: EDBD 09:40 → ER 09:40 → TELE 14:32 → TELE-CENTR 15:50 → ICU WEST 01-30 20:07 → DOU IN ICU 01-31 23:24 → ICU CENTRL 02-08 05:14 → ICU WEST 02-10 21:39
PROVIDERS: ADMIT Hospitalist; ATTEND Internal Medicine
PROC: 05HB33Z Insertion of Infusion Device into Right Basilic Vein, Percutaneous Approach (ICD-10-PCS; 2022-01-29)
PROC: B54MZZA Ultrasonography of Right Upper Extremity Veins, Guidance (ICD-10-PCS; 2022-01-29)
PROC: 5A1D70Z Performance of Urinary Filtration, Intermittent, Less than 6 Hours Per Day (ICD-10-PCS; 2022-01-29)
PROC: 5A1D70Z Performance of Urinary Filtration, Intermittent, Less than 6 Hours Per Day (ICD-10-PCS; 2022-01-30)
PROC: 5A1D70Z Performance of Urinary Filtration, Intermittent, Less than 6 Hours Per Day (ICD-10-PCS; 2022-02-01)
PROC: 06HM33Z Insertion of Infusion Device into Right Femoral Vein, Percutaneous Approach (ICD-10-PCS; 2022-02-05)
PROC: 5A1D70Z Performance of Urinary Filtration, Intermittent, Less than 6 Hours Per Day (ICD-10-PCS; 2022-02-05)
PROC: 5A1D70Z Performance of Urinary Filtration, Intermittent, Less than 6 Hours Per Day (ICD-10-PCS; 2022-02-06)
PROC: 30233N1 Transfusion of Nonautologous Red Blood Cells into Peripheral Vein, Percutaneous Approach (ICD-10-PCS; principal; 2022-02-08)
PROC: 5A1D70Z Performance of Urinary Filtration, Intermittent, Less than 6 Hours Per Day (ICD-10-PCS; 2022-02-08)
PROC: 5A1D70Z Performance of Urinary Filtration, Intermittent, Less than 6 Hours Per Day (ICD-10-PCS; 2022-02-10)
PROC: 05HC33Z Insertion of Infusion Device into Left Basilic Vein, Percutaneous Approach (ICD-10-PCS; 2022-02-11)
PROC: B54NZZA Ultrasonography of Left Upper Extremity Veins, Guidance (ICD-10-PCS; 2022-02-11)
PROC: 5A1D70Z Performance of Urinary Filtration, Intermittent, Less than 6 Hours Per Day (ICD-10-PCS; 2022-02-12)
PROC: 5A1D70Z Performance of Urinary Filtration, Intermittent, Less than 6 Hours Per Day (ICD-10-PCS; 2022-02-14)
PROC: 5A1D70Z Performance of Urinary Filtration, Intermittent, Less than 6 Hours Per Day (ICD-10-PCS; 2022-02-16)
DX: T80.211A Bloodstream infection due to central venous catheter, initial encounter (principal); I21.4 Non-ST elevation (NSTEMI) myocardial infarction; N18.6 End stage renal disease; R65.21 Severe sepsis with septic shock; A41.02 Sepsis due to Methicillin resistant Staphylococcus aureus; G92.8 Other toxic encephalopathy; J96.01 Acute respiratory failure with hypoxia; N39.0 Urinary tract infection, site not specified; I76 Septic arterial embolism; G91.2 (Idiopathic) normal pressure hydrocephalus; I38 Endocarditis, valve unspecified; I12.0 Hypertensive chronic kidney disease with stage 5 chronic kidney disease or end stage renal disease; D63.1 Anemia in chronic kidney disease; E53.8 Deficiency of other specified B group vitamins; Z66 Do not resuscitate; E78.5 Hyperlipidemia, unspecified; E87.5 Hyperkalemia; E88.09 Other disorders of plasma-protein metabolism, not elsewhere classified; L89.156 Pressure-induced deep tissue damage of sacral region; Z74.01 Bed confinement status; E87.6 Hypokalemia; I48.0 Paroxysmal atrial fibrillation; D69.6 Thrombocytopenia, unspecified; E11.649 Type 2 diabetes mellitus with hypoglycemia without coma; H57.02 Anisocoria; Y84.8 Other medical procedures as the cause of abnormal reaction of the patient, or of later complication, without mention of misadventure at the time of the procedure; E11.22 Type 2 diabetes mellitus with diabetic chronic kidney disease; R26.9 Unspecified abnormalities of gait and mobility; R32 Unspecified urinary incontinence; R79.89 Other specified abnormal findings of blood chemistry; R81 Glycosuria; Z20.822 Contact with and (suspected) exposure to COVID-19; E66.9 Obesity, unspecified; R13.10 Dysphagia, unspecified; Z86.73 Personal history of transient ischemic attack (TIA), and cerebral infarction without residual deficits; Z90.49 Acquired absence of other specified parts of digestive tract; Z99.2 Dependence on renal dialysis; Z88.5 Allergy status to narcotic agent; Y92.89 Other specified places as the place of occurrence of the external cause; Z68.31 Body mass index [BMI] 31.0-31.9, adult
CPT/HCPCS: 36415; 36600; 70450; 71045; 71275; 74018; 74177; 76705; 80048; 80053; 80061; 80069; 80074; 80202; 80307; 81001; 82306; 82550; 82565; 82607; 82728; 82746; 82805; 82962; 83036; 83540; 83550; 83605; 83615; 83690; 83735; 83880; 83970; 84100; 84156; 84443; 84484; 84550; 85007; 85014; 85018; 85025; 85027; 85049; 85379; 85610; 85652; 85730; 86141; 86850; 86900; 86901; 86920; 87040; 87077; 87086; 87088; 87147; 87186; 87205; 87493; 90935; 93005; 93306; 93970; 93971; 94640; 95819; 96365; 99291; C9113; G0378; J0696; J0712; J1642; J1815; J2001; J2543; J3480; J3490; J7060; P9047